=== PATIENT | female | born 1995 | race Caucasian/White ===

== ENCOUNTER 2018-11-03 03:47 | Emergency (ER) | payer OTHER ==
[2018-11-03] MEDS ORDERED: ALBUTEROL 2.5 MG/3 ML NEB NEB ONE (03:55)
[2018-11-03] MEDS ORDERED: predniSONE 20 MG TAB PO ONE (03:55)
[2018-11-03] MEDS ORDERED: MONT10TA PO ×2 (03:56→04:33)
[2018-11-03] MEDS ORDERED: ALB6.7R INH ×2 (03:56→04:33)
[2018-11-03 04:30] VITALS: BP 107/76
[2018-11-03] MEDS ORDERED: ALBUTEROL 8 GM INHALER INH ONE (04:30)
[2018-11-03] MEDS ORDERED: PRED-1 PO (04:35)
--- NOTE | 2018-11-03 04:36 | ER Report ---
History and Physical Time Seen By MD: 03:51 Hx. of Stated Complaint: OUT OF SINGULAIR AND PUFFER, ASTHMA GETTING WORSE HPI/ROS CHIEF COMPLAINT: Asthma attack HISTORY OF PRESENT ILLNESS: 23-year-old female smoker presents to the ER with severe difficulty breathing since 3 AM. She states the day before yesterday. She ran out of her Singulair. Last evening she ran out of her rescue inhaler. Patient has multiple animals. She notes many allergic triggers. She denies any recent URI cough sore throat fever or chills. REVIEW OF SYSTEMS: Respiratory: As above Cardiovascular: No chest pain, no palpitations. Gastrointestinal: No vomiting, no abdominal pain. Musculoskeletal: No back pain. Allergies: Coded Allergies: No Known Drug Allergies (Unverified , 11/03/18) Home Meds Active Scripts Prednisone 10 Mg Tab (PREDNISONE 10 MG TAB) 10 Mg Tablet, 10 MG PO QDAY PRN for prevention of asthma, #9 2 tabs daily for 3 days 1 tab daily for 3 days Prov:KEREN CALDERON DO 11/03/18 Montelukast Sodium (SINGULAIR) 10 Mg Tablet, 1 TAB PO QDAY for asthma prevention, #30 TAB 1 Refill Prov:KEREN CALDERON DO 11/03/18 Albuterol Sulfate (PROVENTIL HFA) 6.7 Gm Inh, 2 PUFF INH Q4-6H PRN for asthma symptoms, #1 INH 1 Refill Prov:KEREN CALDERON DO 11/03/18 Reported Medications Albuterol Sulfate (PROVENTIL HFA) 6.7 Gm Inh, 1-2 PUFF INH 3-4XD, INH 11/03/18 Montelukast Sodium (SINGULAIR) 10 Mg Tablet, 1 TAB PO QDAY, TAB 11/03/18 Past Medical/Surgical History Asthma Reviewed Nurses Notes: Yes Old Medical Records Reviewed: Yes Hx Substance Use Disorder: No Hx Alcohol Use: No Constitutional Vital Sign - Last 24 Hours 11/03/18 11/03/18 11/03/18 11/03/18 03:47 03:51 03:52 03:58 Temp 97.9 Pulse ??? 92 Resp 18 B/P (MAP) 121/80 (94) 121/80 Pulse Ox 85 95 O2 Delivery Room Air Nasal Cannula O2 Flow Rate 3.5 11/03/18 11/03/18 11/03/18/20/19 03:58 04:00 04:02 04:13 Pulse 77 84 96 Resp 18 16 B/P (MAP) 97/84 (88) Pulse Ox 95 11/03/18 11/03/18 11/03/18 11/03/18 04:15 04:17 04:22 04:25 Pulse 87 100 B/P (MAP) 110/83 (92) Pulse Ox 87 87 O2 Flow Rate 2.0 11/03/18 11/03/18 04:30 04:37 Pulse 102 B/P (MAP) 107/76 (86) Pulse Ox 87 Physical Exam Vital signs stable, increased respiratory rate, prolonged expiration, increased work of breathing, pulse ox 88% on room air General Appearance: The patient is alert, has no immediate need for airway protection and no current signs of toxicity. HEENT: Pupils equal and round no injection. TMs normal, oropharynx with redness or exudate Respiratory: Chest is non tender, gross expiratory wheezing throughout all lung hope him a, rhonchi or rails Cardiac: regular rate and rhythm Gastrointestinal: Abdomen is soft and non tender, no masses, bowel sounds normal. Musculoskeletal: Neck: Neck is supple and non tender. No lymphadenopathy Extremities have full range of motion and are non tender. Skin: No rashes or lesions. DIFFERENTIAL DIAGNOSIS: After history and physical exam differential diagnosis was considered for shortness of breath including but not limited to pulmonary infectious process, COPD, asthma, pulmonary embolus and congestive heart failure. Medical Decision Making ED Course/Re-evaluation ED Course Patient was admitted to an examination room. H&P was done. The differential diagnoses was considered. On clinical examination. Patient with gross exp iratory wheezing. She has prolonged expiration. She is having a gross asthma attack. She ran out of her medications. Patient's treated with an albuterol nebulizer treatment 5.0 mg. She's given 60 mg prednisone. After approximately an hour and a half. She is reevaluated. Her wheezing is gone. Her pulse ox is still mildly low at 89. But she feels much better. She would like to go home. She is dispensed a rescue inhaler. She is given a refill of her Singulair. She is also given a prednisone taper. She is also given a prescription for refills of her albuterol inhaler. Patient advised to follow-up with primary care if uni mproved in 3-5 days. Decision to Disposition Date: Nov 03, 2018 Decision to Disposition Time: 04:30 Depart Departure Latest Vital Signs Vital Signs Date Time Temp Pulse Resp B/P (MAP) Pulse Ox O2 Delivery O2 Flow Rate FiO2 11/03/18 04:37 102 87 11/03/18 04:30 107/76 (86) 11/03/18 04:25 2.0 11/03/18 04:13 16 11/03/18 03:58 Nasal Cannula 11/03/18 03:52 97.9 Impression: Primary Impression: Asthma exacerbation Condition: Improved Disposition: HOME OR SELF-CARE New Scripts Prednisone 10 Mg Tab (PREDNISONE 10 MG TAB) 10 Mg Tablet 10 MG PO QDAY PRN for prevention of asthma, #9 2 tabs daily for 3 days 1 tab daily for 3 days Prov: KEREN CALDERON DO 11/03/18 Montelukast Sodium (SINGULAIR) 10 Mg Tablet 1 TAB PO QDAY for asthma prevention, #30 TAB 1 Refill Prov: EKREN CALDERON DO 11/03/18 Albuterol Sulfate (PROVENTIL HFA) 6.7 Gm Inh 2 PUFF INH Q4-6H PRN for asthma symptoms, #1 INH 1 Refill Prov: KEREN CALDERON DO 11/03/18 Departure Forms: Medications Reconciliation, Patient Portal Information, ER Transition Record Patient Instructions: Asthma (ED) Additional Instructions: Follow-up with primary care if unimproved in 3-5 days. Problem Qualifiers Primary Impression: Asthma exacerbation Asthma severity: mild Asthma persistence: persistent Qualified Codes: J45.31 - Mild persistent asthma with (acute) exacerbation KEREN CALDERON DO Nov 03, 2018 04:36
== END 2018-11-03 04:42 | disposition home or self-care (01) ==
LOC: ER 03:55
DX: J45.31 Mild persistent asthma with (acute) exacerbation (principal)
CPT/HCPCS: 94640; 99283; J3535; J7512; J7613